=== PATIENT | female | born 1980 | race Caucasian/White ===

== ENCOUNTER 2017-02-08 02:13 | Emergency (ER) | payer OTHER ==
[~2017-02-08] VITALS: Ht 160 cm; Wt 61.2 kg
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
[2017-02-08] MEDS ORDERED: IBUPROFEN 400 MG TABLET ONE (02:28)
[2017-02-08] MEDS ORDERED: IBUPROFEN 400 MG TABLET PO ONE (02:30)
--- NOTE | 2017-02-08 02:34 | NUR ---
RADIOLOGY AT BEDSIDE FOR EVAL.
--- NOTE | 2017-02-08 03:25 | NUR ---
Patient discharged under [employer] custody. Written and verbal after care instructions given. Patient verbalizes understanding of instruction. ambulatory with a steady gait. instructed not to drive. pt verbalize understanding.
[2017-02-08 03:26] VITALS: BP 118/78
== END 2017-02-08 03:27 ==
LOC: ER 02:15
DX: S16.1XXA Strain of muscle, fascia and tendon at neck level, initial encounter (principal); S56.912A Strain of unspecified muscles, fascia and tendons at forearm level, left arm, initial encounter; S83.8X2A Sprain of other specified parts of left knee, initial encounter; V47.5XXA Car driver injured in collision with fixed or stationary object in traffic accident, initial encounter; Y93.89 Activity, other specified; Y92.413 State road as the place of occurrence of the external cause; Y99.8 Other external cause status
CPT/HCPCS: 71010; 72040; 73090; 73130; 73564 ×2; 99284; A4606; Z7610